=== PATIENT | female | born 1975 | race Asian ===

== ENCOUNTER 2023-09-01 19:11 | Emergency (ER) | payer SELFPAY ==
[~2023-09-01] VITALS: Ht 170.2 cm; Wt 55.3 kg
[2023-09-01 19:43] VITALS: BP_SYST 117; PULSE 68; RESP 18; TEMP 99.9; O2SAT 97
[2023-09-01 19:56] VITALS: BP_SYST 117; PULSE 68; RESP 18; TEMP 99.9; O2SAT 97
== END 2023-09-01 20:01 ==
LOC: SED 19:11
DX: Z02.89 Encounter for other administrative examinations (principal); Z79.899 Other long term (current) drug therapy
CPT/HCPCS: 99283